=== PATIENT | female | born 1960 | race African-American/Black ===

== ENCOUNTER 2023-11-24 04:56 | Emergency (ER) | payer BC ==
[~2023-11-24] VITALS: Ht 175.3 cm; Wt 73.0 kg
[2023-11-24 05:04] VITALS: O2SAT 100
[2023-11-24 05:06] VITALS: BP 135/82; PULSE 60; RESP 20; TEMP 98.4; O2SAT 100
[2023-11-24] MEDS ORDERED: MUPI1OIN4 TP (06:03)
== END 2023-11-24 06:30 | disposition home or self-care (01) ==
LOC: ER 05:36
DX: S20.461A Insect bite (nonvenomous) of right back wall of thorax, initial encounter (principal); I10 Essential (primary) hypertension; Z88.5 Allergy status to narcotic agent; W57.XXXA Bitten or stung by nonvenomous insect and other nonvenomous arthropods, initial encounter; Y93.89 Activity, other specified; Y92.89 Other specified places as the place of occurrence of the external cause; Y99.8 Other external cause status
CPT/HCPCS: 99283